=== PATIENT | male | born 1940 | race American Indian/Alaskan Native ===

== ENCOUNTER 2018-11-29 02:19 | Emergency (ER) | payer MEDICARE, MEDICAID ==
[~2018-11-29] VITALS: Ht 167.6 cm; Wt 94.1 kg
[~2018-11-29 02:19] MED LIST: ASPI-1071 PO; CHOL100010 PO; CLOP75TA35 PO; COR3.125T PO; FENO145T38 PO; FLUO20CA39 PO; LISI-600 PO; METF500T PO; MONT10TA21 PO; RANI150C3 PO; ROSU10TA2 PO
[2018-11-29] MEDS ORDERED: insulin regular, human 10 units/0.1 ml syringe SQ ONE (02:35)
[2018-11-29] MEDS ORDERED: LORazepam 0.5 MG tablet PO PRN (03:05)
[2018-11-29] MEDS ORDERED: TETanus/Pertussis (Acell)/Diphther VAC/PF (Tdap-Adult) 0.5ml syringe IM ONE (03:05)
[2018-11-29 03:59] VITALS: BP 139/75
== END 2018-11-29 04:00 | disposition home or self-care (01) ==
LOC: ER 02:20
DX: S51.811A Laceration without foreign body of right forearm, initial encounter (principal); E11.65 Type 2 diabetes mellitus with hyperglycemia; I25.10 Atherosclerotic heart disease of native coronary artery without angina pectoris; E78.00 Pure hypercholesterolemia, unspecified; I10 Essential (primary) hypertension; J45.909 Unspecified asthma, uncomplicated; Z98.61 Coronary angioplasty status; Z95.1 Presence of aortocoronary bypass graft; Z88.2 Allergy status to sulfonamides; Z79.82 Long term (current) use of aspirin; Z79.84 Long term (current) use of oral hypoglycemic drugs; Z79.2 Long term (current) use of antibiotics; Z79.899 Other long term (current) drug therapy; X58.XXXA Exposure to other specified factors, initial encounter; Y93.89 Activity, other specified; Y92.89 Other specified places as the place of occurrence of the external cause; Y99.8 Other external cause status
CPT/HCPCS: 12002; 82948; 90471; 90714; 96372; 99283; J1815

== ENCOUNTER 2019-01-23 21:40 | Emergency (ER) | payer MEDICARE, MEDICAID ==
[~2019-01-23] VITALS: Ht 167.6 cm; Wt 91.0 kg
--- NOTE | 2019-01-23 22:11 | NUR ---
Pt saw pcp 3 days ago and started on tizanadine and volteran cream and reprots it did "not even touch the pain". Pt has tylenol codeine and took this earlier today still with no reief of his left posterior neck pain. Currently 9 out of 10 pain and it is constant and throbbing.
--- NOTE | 2019-01-23 22:39 | NUR ---
DR PADRON AT BEDSIDE.
--- NOTE | 2019-01-23 23:39 | NUR ---
Pt reports pain continues to his left posterior neck. Dr. Leger notified and verbal received for [employer] .
[2019-01-23] MEDS ORDERED: HYDROcodone/acetaminophen 10/325mg tab PO ONE (23:50)
--- NOTE | 2019-01-23 23:52 | NUR ---
reports that pt took a tablet of her norco 10/325 aprox 3 hrs ago. She reports that pt has some relief from this. she reports Pt had hallucinations many yrs ago after taking vocidin. Pt not reporting any hallucinations since taking the [place] earlier. updated and medication deleted from allergy list.
--- NOTE | 2019-01-24 00:04 | NUR ---
DR. PADRON UPDATED THAT PT RECEIVED THE NORCO FROM HIS SPOUSE APROX 4 HR AGO, MD DISCONTINUING THE MED AND WILL ORDER A MUSCLE RELAXER INSTEAD.
--- NOTE | 2019-01-24 00:14 | NUR ---
DR PADRON REPORTS THAT SHE WILL REEVALUATE SHORTLY. PT UPDATED.
[2019-01-24] MEDS ORDERED: cyclobenzaprine 10mg tablet PO ONE (00:30)
--- NOTE | 2019-01-24 00:30 | NUR ---
dr cherry talking with pt. ( has gone out ot the car). Order to place soft neck collar and Pt reprots immediate comfort just having the collar on. md to given dose of flexeril prior to dc.
[2019-01-24 00:32] VITALS: BP 187/97
[2019-01-24] MEDS ORDERED: HYDR-3965 PO (00:35)
[2019-01-24] MEDS ORDERED: CYCL-1 PO (00:35)
== END 2019-01-24 00:50 | disposition home or self-care (01) ==
LOC: ER 21:41
DX: M43.6 Torticollis (principal); I25.10 Atherosclerotic heart disease of native coronary artery without angina pectoris; E78.00 Pure hypercholesterolemia, unspecified; I10 Essential (primary) hypertension; J45.909 Unspecified asthma, uncomplicated; E11.9 Type 2 diabetes mellitus without complications; Z98.61 Coronary angioplasty status; Z95.1 Presence of aortocoronary bypass graft; Z88.2 Allergy status to sulfonamides; Z88.6 Allergy status to analgesic agent; Z79.82 Long term (current) use of aspirin; Z79.84 Long term (current) use of oral hypoglycemic drugs; Z79.899 Other long term (current) drug therapy
CPT/HCPCS: 72050; 99283

== ENCOUNTER 2019-12-02 04:54 | Emergency (ER) | payer MEDICARE, MEDICAID ==
[~2019-12-02] VITALS: Ht 167.6 cm; Wt 90.0 kg
[~2019-12-02 04:54] MED LIST changes: +CYCL-1 PO
[2019-12-02 04:58] VITALS: BP 190/68
[2019-12-02] MEDS ORDERED: CIPR-230 PO (05:10)
== END 2019-12-02 05:33 | disposition home or self-care (01) ==
LOC: ER 04:54
DX: H60.91 Unspecified otitis externa, right ear (principal); I25.10 Atherosclerotic heart disease of native coronary artery without angina pectoris; E78.00 Pure hypercholesterolemia, unspecified; I10 Essential (primary) hypertension; J45.909 Unspecified asthma, uncomplicated; E11.9 Type 2 diabetes mellitus without complications; Z98.61 Coronary angioplasty status; Z95.1 Presence of aortocoronary bypass graft; Z88.2 Allergy status to sulfonamides; Z88.5 Allergy status to narcotic agent; Z79.82 Long term (current) use of aspirin; Z79.899 Other long term (current) drug therapy
CPT/HCPCS: 99283

== ENCOUNTER 2020-12-06 22:05 | Emergency (ER) | payer MEDICARE, MEDICAID ==
[~2020-12-06] VITALS: Ht 167.6 cm; Wt 92.7 kg
[~2020-12-06 22:05] MED LIST changes: +CLOP75TA34 PO; -CLOP75TA35 PO; -LISI-600 PO; +LISI20TA28 PO
[2020-12-06 22:08] VITALS: BP 112/67
== END 2020-12-07 05:56 | disposition left against medical advice (07) ==
LOC: ER 22:05
DX: I10 Essential (primary) hypertension (principal); Z53.21 Procedure and treatment not carried out due to patient leaving prior to being seen by health care provider

== ENCOUNTER 2020-12-26 05:51 | Day surgery (SDC) | payer MEDICARE, MEDICAID ==
[2020-12-25 16:30] LABS: ALBUMIN 3.7 G/DL (3.4-5.0); ANION GAP 11 (8-16); BLOOD UREA NITROGEN 41 MG/DL (7-18); BUN/CREATININE RATIO 19.8 (5.4-32.0); CALCIUM 8.7 MG/DL (8.5-10.1); CHLORIDE 107 MMOL/L (99-107); CREATININE 2.07 MG/DL (0.60-1.10); GLUCOSE 132 MG/DL (70-104); POTASSIUM 4.4 MMOL/L (3.5-5.1); SODIUM 140 MMOL/L (135-145); TOTAL CARBON DIOXIDE 21.8 MMOL/L (24-32); eGFR 31 ML/MIN
[2020-12-25 16:31] LABS: BASOPHILS # (AUTO) 0.1 X10'3 (0-0.2); EOSINOPHILS # (AUTO) 0.1 X10'3 (0-0.9); EOSINOPHILS % (AUTO) 2.3 % (0-6); HEMATOCRIT 42.1 % (42.0-52.0); HEMOGLOBIN 14.4 g/dl (14.0-17.9); LYMPHOCYTES # (AUTO) 1.5 X10'3 (1.1-4.8); MEAN CORPUSCULAR HEMOGLOBIN 30.9 PG (27.0-31.0); MEAN CORPUSCULAR HGB CONC 34.1 g/dL (33.0-36.5); MEAN CORPUSCULAR VOLUME 90.7 FL (78-98); MEAN PLATELET VOLUME 9.4 FL (7.4-10.4); MONOCYTES # (AUTO) 0.4 X10'3 (0-0.9); MONOCYTES % (AUTO) 8.2 % (2-12); NEUTROPHILS % (AUTO) 59.5 % (42-75); PLATELET COUNT 220 X10'3 (140-440); RED BLOOD COUNT 4.64 X10'6 (4.70-6.10); RED CELL DISTRIBUTION WIDTH 13.5 % (11.5-14.5)
[2020-12-25 16:33] LABS: PARTIAL THROMBOPLASTIN TIME 28 SECONDS (22-32)
[~2020-12-26] VITALS: Ht 165.1 cm; Wt 92.6 kg
[2020-12-26] VITALS (18 sets, daily range): BP systolic 123–167; BP diastolic 46–78
[2020-12-26] MEDS ORDERED: diphenhydrAMINE 25mg capsule PO PRN (06:25)
[2020-12-26] MEDS ORDERED: LORazepam 0.5 MG tablet PO PRN (06:25)
[2020-12-26] MEDS ORDERED: NITR1PAT68 TOP (06:48)
[2020-12-26] MEDS ORDERED: CARV6.253 PO (06:48)
[2020-12-26] MEDS ORDERED: CETI10TA14 PO (06:48)
[2020-12-26] MEDS ORDERED: ASPI-1397 PO (06:48)
[2020-12-26] MEDS ORDERED: EMPA10TA PO (06:50)
[2020-12-26] MEDS ORDERED: SPIR50TA PO (06:53)
[2020-12-26] MEDS ORDERED: FISH OIL PO (06:53)
[2020-12-26] MEDS ORDERED: AMLO2.5T2 PO (06:53)
[2020-12-26] MEDS: normal saline 1,000 ML IV SCH ×2 (06:54→16:25)
[2020-12-26] MEDS ORDERED: ICOS1CAP PO (06:55)
[2020-12-26] MEDS ORDERED: fentaNYL/PF 50MCG/1 ML 2ML syringe ONE (07:40)
[2020-12-26] MEDS ORDERED: LIDOcaine 1% (10mg/ml)w/preservative injection 20ml MDV ONE (07:40)
[2020-12-26] MEDS ORDERED: midazolam 1 mg/ML 2ml injection ONE (07:40)
[2020-12-26] MEDS ORDERED: iohexol 350MG/ML 100ml bottle IV ONE ×2 (07:40→08:32)
[2020-12-26] MEDS ORDERED: iohexol 350 MG/ML 50ML vial IV ONE (07:40)
[2020-12-26] MEDS ORDERED: nitroGLYCERIN-Tridil 50MG/D5W 250 ML IV ONE (07:41)
[2020-12-26] MEDS ORDERED: heparin 1,000unit/ml 10ml vial 10 ML ONE (08:24)
[2020-12-26] MEDS ORDERED: heparin 25,000 UNIT/250ml bag 250 ML IV ONE (08:48)
[2020-12-26] MEDS ORDERED: clopidogrel 300mg tablet ONE (09:09)
[2020-12-26] MEDS: sodium bicarbonate (8.4%) inj. 150 MEQ in dextrose 5%-water 1,000 ML IV SCH ×2 (09:50→16:59)
[2020-12-26] MEDS ORDERED: CLOPIDOGREL BISULFATE 300MG TAB PO ONE (10:30)
[2020-12-26] MEDS ORDERED: aspirin 81mg tab.chew PO ONE (10:35)
[2020-12-26] MEDS ORDERED: acetaminophen 325mg tablet PO PRN ×2 (10:35)
[2020-12-26] MEDS ORDERED: proCHLORperazine 10 MG/2 ml inj IV PRN (10:35)
[2020-12-26] MEDS ORDERED: sodium bicarbonate (8.4%) inj. 150 MEQ in dextrose 5%-water 1,000 ML IV SCH (10:35)
[2020-12-26] MEDS ORDERED: cyclobenzaprine 10mg tablet PO PRN (10:35)
[2020-12-26] MEDS ORDERED: HYDROcodone/acetaminophen 10/325mg tab PO PRN ×2 (10:35)
[2020-12-26] MEDS ORDERED: OXAZEpam 15mg capsule PO PRN (10:35)
[2020-12-26] MEDS: ACETYLCYSTEINE 200 MG/1 ML 4 ML ORAL SOLUTION PO SCH ×2 (11:08→18:20)
[2020-12-26] MEDS ORDERED: atropine 0.1mg/ml 10ml syringe IV ONE (12:10)
--- NOTE | 2020-12-26 12:15 | NUR ---
Called Dr. Alvarez in [facility] regarding patient HR going into the 30's. Received orders for atropine
[2020-12-26] MEDS ORDERED: atropine 1 MG/1 ML vial IV PRN (15:45)
--- NOTE | 2020-12-26 15:50 | NUR ---
Dr. Alvarez called again regarding patient's HR dropping in the 30's. New orders received.
[2020-12-26] MEDS ORDERED: atropine 0.1mg/ml 10ml syringe IV PRN (15:55)
--- NOTE | 2020-12-26 18:56 | NUR ---
Report given to Millie CORONADO
[2020-12-26] MEDS ORDERED: docusate sod 100mg capsule PO SCH (20:00)
[2020-12-26] MEDS ORDERED: lisinopril 10 MG tablet PO SCH (20:00)
[2020-12-26] MEDS ORDERED: carVEDilol 3.125mg tablet PO SCH (20:00)
[2020-12-26] MEDS ORDERED: ICOSAPENT ETHYL PO SCH (20:00)
[2020-12-27] MEDS ORDERED: aspirin 81mg, enteric-coated 1 TAB TABLET.DR PO SCH (08:00)
[2020-12-27] MEDS ORDERED: aspirin 81mg tab.chew PO SCH (08:00)
[2020-12-27] MEDS ORDERED: cholecalciferol (vitamin D3) 1,000 unit (25mcg) tablet PO SCH (08:00)
[2020-12-27] MEDS ORDERED: DAPAGLIFLOZIN 10MG TABLET PO SCH (08:00)
[2020-12-27] MEDS ORDERED: spironolactone 50 MG tablet PO SCH (08:00)
[2020-12-27] MEDS ORDERED: amLODIPine 2.5mg tablet PO SCH (08:00)
[2020-12-27] MEDS ORDERED: cetirizine 10mg tablet PO SCH (08:00)
[2020-12-27] MEDS ORDERED: nitroGLYCERIN 0.4mg/hour patch TD SCH (08:00)
[2020-12-27] MEDS ORDERED: clopidogrel 75mg tablet PO SCH ×2 (08:00)
== END 2020-12-26 19:00 | disposition home or self-care (01) ==
LOC: SSTAY O 05:51
PROVIDERS: ATTEND Internal Medicine Cardiovascular Disease
DX: R94.39 Abnormal result of other cardiovascular function study (principal); R53.83 Other fatigue; R06.02 Shortness of breath; I25.810 Atherosclerosis of coronary artery bypass graft(s) without angina pectoris; I12.0 Hypertensive chronic kidney disease with stage 5 chronic kidney disease or end stage renal disease; N18.6 End stage renal disease; E78.49 Other hyperlipidemia; E66.3 Overweight; Z68.32 Body mass index [BMI] 32.0-32.9, adult; F41.9 Anxiety disorder, unspecified; F32.9 Major depressive disorder, single episode, unspecified; J45.909 Unspecified asthma, uncomplicated; Z79.899 Other long term (current) drug therapy; Z98.890 Other specified postprocedural states; Z87.891 Personal history of nicotine dependence; Z88.5 Allergy status to narcotic agent; Z88.2 Allergy status to sulfonamides
CPT/HCPCS: 36415; 76937; 80048; 82948; 85025; 85347; 85610; 85730; 93005; 93459; 99152; 99153; C1725; C1751; C1769; C1874; C1894; C9600; J0461; J1644; J2001; J2250; J3010; J7030; J7040; Q0163; Q9967; A4620; A6258; J3490

== ENCOUNTER 2021-01-16 05:52 | Day surgery (SDC) | payer MEDICARE, MEDICAID ==
[2021-01-15 15:57] LABS: BASOPHILS % (AUTO) 0.6 % (0-1); EOSINOPHILS # (AUTO) 0.1 X10'3 (0-0.9); EOSINOPHILS % (AUTO) 1.7 % (0-6); HEMATOCRIT 42.6 % (42.0-52.0); HEMOGLOBIN 14.1 g/dl (14.0-17.9); LYMPHOCYTES # (AUTO) 1.5 X10'3 (1.1-4.8); LYMPHOCYTES % (AUTO) 21.8 % (21-51); MEAN CORPUSCULAR HEMOGLOBIN 29.6 PG (27.0-31.0); MEAN CORPUSCULAR VOLUME 89.7 FL (78-98); MEAN PLATELET VOLUME 8.4 FL (7.4-10.4); MONOCYTES # (AUTO) 0.6 X10'3 (0-0.9); MONOCYTES % (AUTO) 8.5 % (2-12); NEUTROPHILS # (AUTO) 4.5 X10'3 (1.8-7.7); NEUTROPHILS % (AUTO) 67.4 % (42-75); PLATELET COUNT 286 X10'3 (140-440); RED BLOOD COUNT 4.75 X10'6 (4.70-6.10); RED CELL DISTRIBUTION WIDTH 13.6 % (11.5-14.5); WHITE BLOOD COUNT 6.7 X10'3 (4.5-11.0)
[2021-01-15 16:04] LABS: ALBUMIN 3.3 G/DL (3.4-5.0); ANION GAP 14 (8-16); BLOOD UREA NITROGEN 24 MG/DL (7-18); BUN/CREATININE RATIO 13.8 (5.4-32.0); CALCIUM 8.8 MG/DL (8.5-10.1); CHLORIDE 106 MMOL/L (99-107); CREATININE 1.74 MG/DL (0.60-1.10); GLUCOSE 178 MG/DL (70-104); POTASSIUM 4.3 MMOL/L (3.5-5.1); SODIUM 142 MMOL/L (135-145); TOTAL CARBON DIOXIDE 22.2 MMOL/L (24-32); eGFR 38 ML/MIN
[2021-01-15 16:06] LABS: PARTIAL THROMBOPLASTIN TIME 29 SECONDS (22-32)
[~2021-01-16] VITALS: Ht 167.6 cm; Wt 93.0 kg
[2021-01-16] VITALS (11 sets, daily range): BP systolic 131–155; BP diastolic 61–85
[~2021-01-16 05:52] MED LIST changes: +AMLO2.5T2 PO; -ASPI-1071 PO; +ASPI-1397 PO; +CARV6.253 PO; +CETI10TA14 PO; -COR3.125T PO; -CYCL-1 PO; +EMPA10TA PO; -FENO145T38 PO; -FLUO20CA39 PO; +ICOS1CAP PO; -METF500T PO; -MONT10TA21 PO; +NITR1PAT68 TOP; -RANI150C3 PO; -ROSU10TA2 PO; +SPIR50TA PO
[2021-01-16] MEDS ORDERED: normal saline 1,000 ML IV SCH (06:15)
[2021-01-16] MEDS ORDERED: sodium bicarbonate (8.4%) inj. 150 ML in dextrose 5%-water 1,000 ML IV ONE (06:15)
[2021-01-16] MEDS ORDERED: MONT10TA32 PO (06:26)
[2021-01-16] MEDS ORDERED: ROSU20TA31 PO (06:26)
[2021-01-16] MEDS ORDERED: EMPA10TA PO (06:29)
[2021-01-16] MEDS ORDERED: PANT40TA54 PO (06:29)
[2021-01-16] MEDS: acetylcysteine 200 MG/ml 4ml vial PO SCH ×3 (07:12→15:46)
[2021-01-16] MEDS ORDERED: nitroGLYCERIN-Tridil 50MG/D5W 250 ML IV ONE (07:18)
[2021-01-16] MEDS ORDERED: iohexol 350 MG/ML 50ML vial IV ONE (07:19)
[2021-01-16] MEDS ORDERED: midazolam 1 mg/ML 2ml injection ONE (07:19)
[2021-01-16] MEDS ORDERED: iohexol 350 MG/1 ML 200ml bottle ONE (07:19)
[2021-01-16] MEDS ORDERED: fentaNYL/PF 50MCG/1 ML 2ML syringe ONE (07:19)
[2021-01-16] MEDS ORDERED: heparin 1,000unit/ml 10ml vial 10 ML ONE (07:19)
[2021-01-16] MEDS ORDERED: LIDOcaine 1% (10mg/ml)w/preservative injection 20ml MDV ONE (07:19)
[2021-01-16] MEDS ORDERED: heparin 25,000 UNIT/250ml bag 250 ML IV ONE (07:28)
[2021-01-16] MEDS ORDERED: LIDOcaine/PRILOcaine 5gm cream TP ONE (07:35)
[2021-01-16] MEDS ORDERED: verapamil 2.5 mg/ml inj IV ONE (07:49)
[2021-01-16] MEDS ORDERED: clopidogrel 300mg tablet ONE (09:19)
--- NOTE | 2021-01-16 10:00 | NUR ---
[employer] IV running at 93ml/hr after arrival on unit.
[2021-01-16] MEDS ORDERED: HYDROcodone/acetaminophen 10/325mg tab PO PRN (10:05)
[2021-01-16] MEDS ORDERED: HYDROcodone/acetaminophen 5mg/325mg tablet PO PRN (10:05)
--- NOTE | 2021-01-16 10:26 | NUR ---
Pt sitting up in bed accompanied by at bedside. Pt eating sandwich and watching TV. Denies pain, sob. Vascular band in place, no s/s of bleeding or infection. IV fluids running as ordered. Will continue to monitor.
--- NOTE | 2021-01-16 10:30 | NUR ---
Heparin gtt DC per order.
[2021-01-17] MEDS ORDERED: clopidogrel 75mg tablet PO SCH (08:00)
== END 2021-01-16 16:00 | disposition home or self-care (01) ==
LOC: SSTAY O 05:52
PROVIDERS: ATTEND Internal Medicine Cardiovascular Disease
DX: I25.810 Atherosclerosis of coronary artery bypass graft(s) without angina pectoris (principal); E11.22 Type 2 diabetes mellitus with diabetic chronic kidney disease; I12.9 Hypertensive chronic kidney disease with stage 1 through stage 4 chronic kidney disease, or unspecified chronic kidney disease; N18.9 Chronic kidney disease, unspecified; K21.9 Gastro-esophageal reflux disease without esophagitis; F32.9 Major depressive disorder, single episode, unspecified; F41.9 Anxiety disorder, unspecified; J45.909 Unspecified asthma, uncomplicated; I65.22 Occlusion and stenosis of left carotid artery; E78.49 Other hyperlipidemia; E66.9 Obesity, unspecified; Z68.32 Body mass index [BMI] 32.0-32.9, adult; Z98.890 Other specified postprocedural states; Z79.01 Long term (current) use of anticoagulants; Z79.899 Other long term (current) drug therapy; Z79.82 Long term (current) use of aspirin; Z87.891 Personal history of nicotine dependence; Z88.5 Allergy status to narcotic agent; Z88.2 Allergy status to sulfonamides
CPT/HCPCS: 36415; 76937; 80048; 82948; 85025; 85347; 85610; 85730; 93005; 99152; 99153; C1725; C1751; C1769; C1874; C1894; C9604; J1644; J2001; J2250; J3010; J7030; Q9967; A4620; A5120; A6258; J3490

== ENCOUNTER 2021-02-24 02:38 | Emergency (ER) | payer MEDICARE, MEDICAID ==
[~2021-02-24] VITALS: Ht 167.6 cm; Wt 90.4 kg
[~2021-02-24 02:38] MED LIST changes: -ICOS1CAP PO; +MONT10TA32 PO; +PANT40TA54 PO; +ROSU20TA31 PO
[2021-02-24 03:01] VITALS: BP 138/59
[2021-02-24 03:40] LABS: BASOPHILS # (AUTO) 0.1 X10'3 (0-0.2); BASOPHILS % (AUTO) 1.2 % (0-1); EOSINOPHILS # (AUTO) 0.1 X10'3 (0-0.9); EOSINOPHILS % (AUTO) 1.6 % (0-6); HEMATOCRIT 45.8 % (42.0-52.0); HEMOGLOBIN 15.2 g/dl (14.0-17.9); LYMPHOCYTES % (AUTO) 33.9 % (21-51); MEAN CORPUSCULAR HEMOGLOBIN 30.2 PG (27.0-31.0); MEAN CORPUSCULAR HGB CONC 33.3 g/dL (33.0-36.5); MEAN CORPUSCULAR VOLUME 90.8 FL (78-98); MONOCYTES # (AUTO) 0.6 X10'3 (0-0.9); MONOCYTES % (AUTO) 9.9 % (2-12); NEUTROPHILS # (AUTO) 3.2 X10'3 (1.8-7.7); NEUTROPHILS % (AUTO) 53.4 % (42-75); PLATELET COUNT 213 X10'3 (140-440); RED BLOOD COUNT 5.04 X10'6 (4.70-6.10); RED CELL DISTRIBUTION WIDTH 14.8 % (11.5-14.5)
== END 2021-02-24 04:50 | disposition home or self-care (01) ==
LOC: ER 02:39
DX: R03.0 Elevated blood-pressure reading, without diagnosis of hypertension (principal); R07.89 Other chest pain; I10 Essential (primary) hypertension; E11.9 Type 2 diabetes mellitus without complications; I25.10 Atherosclerotic heart disease of native coronary artery without angina pectoris; E78.00 Pure hypercholesterolemia, unspecified; J45.909 Unspecified asthma, uncomplicated; Z79.82 Long term (current) use of aspirin; Z95.5 Presence of coronary angioplasty implant and graft; Z79.899 Other long term (current) drug therapy
CPT/HCPCS: 36415; 71045; 84484; 85025; 93005; 99285

== ENCOUNTER 2021-08-12 00:24 | Emergency (ER) | payer MEDICARE, MEDICAID ==
[~2021-08-12 00:24] MED LIST changes: +MONT-40 PO; -MONT10TA32 PO
--- NOTE | 2021-08-12 00:52 | NUR ---
PT SAW BP OF 133/64 IN TRIAGE AND STATES HE NO LONGER WANTS TO BE SEEN. PT ASKED TO NTO COMPLETE HIS TRIAGE AND DEPARTED IN STABLE CONDITION FROM LOBBY
[2021-08-12 00:53] VITALS: BP 133/64
== END 2021-08-12 00:55 | disposition left against medical advice (07) ==
LOC: ER 00:25
DX: R03.0 Elevated blood-pressure reading, without diagnosis of hypertension (principal); Z53.21 Procedure and treatment not carried out due to patient leaving prior to being seen by health care provider

== ENCOUNTER 2021-12-14 23:57 | Emergency (ER) | payer BC, MEDICAID ==
[~2021-12-14] VITALS: Ht 167.6 cm; Wt 85.5 kg
[2021-12-15 01:33] LABS: BASOPHILS % (AUTO) 0.8 % (0-1); EOSINOPHILS # (AUTO) 0.2 X10'3 (0-0.9); EOSINOPHILS % (AUTO) 2.9 % (0-6); HEMATOCRIT 44.9 % (42.0-52.0); HEMOGLOBIN 15.1 g/dl (14.0-17.9); LYMPHOCYTES # (AUTO) 1.7 X10'3 (1.1-4.8); LYMPHOCYTES % (AUTO) 28.1 % (21-51); MEAN CORPUSCULAR HEMOGLOBIN 30.4 PG (27.0-31.0); MEAN CORPUSCULAR HGB CONC 33.7 g/dL (33.0-36.5); MEAN CORPUSCULAR VOLUME 90.4 FL (78-98); MEAN PLATELET VOLUME 8.8 FL (7.4-10.4); MONOCYTES # (AUTO) 0.5 X10'3 (0-0.9); MONOCYTES % (AUTO) 8.1 % (2-12); NEUTROPHILS # (AUTO) 3.6 X10'3 (1.8-7.7); NEUTROPHILS % (AUTO) 60.1 % (42-75); PLATELET COUNT 169 X10'3 (140-440); RED BLOOD COUNT 4.97 X10'6 (4.70-6.10); RED CELL DISTRIBUTION WIDTH 14.5 % (11.5-14.5)
[2021-12-15 01:58] LABS: ALANINE AMINOTRANSFERASE 26 U/L (12-78); ALBUMIN 3.6 G/DL (3.4-5.0); ALKALINE PHOSPHATASE 80 IU/L (46-116); ANION GAP 10 (8-16); ASPARTATE AMINO TRANSFERASE 22 U/L (10-37); BILIRUBIN,TOTAL 0.7 MG/DL (0.1-1.0); BLOOD UREA NITROGEN 34 MG/DL (7-18); BUN/CREATININE RATIO 17.8 (5.4-32.0); CALCIUM 8.5 MG/DL (8.5-10.1); CHLORIDE 103 MMOL/L (99-107); CREATININE 1.91 MG/DL (0.60-1.10); GLUCOSE 130 MG/DL (70-104); POTASSIUM 4.4 MMOL/L (3.5-5.1); SODIUM 137 MMOL/L (135-145); TOTAL CARBON DIOXIDE 24.5 MMOL/L (24-32); TOTAL PROTEIN 7.3 G/DL (6.4-8.2); eGFR 34 ML/MIN
[2021-12-15 02:31] VITALS: BP_DIAS 73
[2021-12-15] MEDS ORDERED: hyDRALAzine 10mg tablet PO SCH (02:40)
[2021-12-15 03:00] VITALS: BP_SYST 180
== END 2021-12-15 03:11 | disposition home or self-care (01) ==
LOC: ER 23:57
DX: R06.00 Dyspnea, unspecified (principal); I10 Essential (primary) hypertension; R06.02 Shortness of breath; I48.91 Unspecified atrial fibrillation; I25.10 Atherosclerotic heart disease of native coronary artery without angina pectoris; E78.00 Pure hypercholesterolemia, unspecified; J45.909 Unspecified asthma, uncomplicated; E11.9 Type 2 diabetes mellitus without complications; Z98.890 Other specified postprocedural states; Z79.82 Long term (current) use of aspirin; Z79.899 Other long term (current) drug therapy
CPT/HCPCS: 36415; 71045; 80053; 82948; 83880; 84484; 85025; 93005; 99285

== ENCOUNTER 2021-12-17 04:29 | Emergency (ER) | payer BC, MEDICAID ==
[~2021-12-17] VITALS: Ht 167.6 cm; Wt 78.0 kg
[2021-12-17] MEDS ORDERED: ICOS1CAP PO (04:47)
[2021-12-17] MEDS ORDERED: DULA0.75 SQ (04:47)
[2021-12-17] MEDS ORDERED: B12 (04:47)
[2021-12-17 06:10] LABS: BASOPHILS # (AUTO) 0.1 X10'3 (0-0.2); BASOPHILS % (AUTO) 0.9 % (0-1); EOSINOPHILS # (AUTO) 0.1 X10'3 (0-0.9); EOSINOPHILS % (AUTO) 2.5 % (0-6); HEMOGLOBIN 16.2 g/dl (14.0-17.9); LYMPHOCYTES # (AUTO) 1.8 X10'3 (1.1-4.8); LYMPHOCYTES % (AUTO) 31.5 % (21-51); MEAN CORPUSCULAR HEMOGLOBIN 30.5 PG (27.0-31.0); MEAN CORPUSCULAR HGB CONC 33.7 g/dL (33.0-36.5); MEAN CORPUSCULAR VOLUME 90.3 FL (78-98); MEAN PLATELET VOLUME 8.7 FL (7.4-10.4); MONOCYTES # (AUTO) 0.6 X10'3 (0-0.9); MONOCYTES % (AUTO) 10.2 % (2-12); NEUTROPHILS # (AUTO) 3.2 X10'3 (1.8-7.7); NEUTROPHILS % (AUTO) 54.9 % (42-75); PLATELET COUNT 192 X10'3 (140-440); RED BLOOD COUNT 5.31 X10'6 (4.70-6.10); RED CELL DISTRIBUTION WIDTH 14.7 % (11.5-14.5); WHITE BLOOD COUNT 5.8 X10'3 (4.5-11.0)
[2021-12-17 06:18] LABS: ALANINE AMINOTRANSFERASE 27 U/L (12-78); ALBUMIN/GLOBULIN RATIO 1.1 (1.1-1.5); ALKALINE PHOSPHATASE 66 IU/L (46-116); ANION GAP 12 (8-16); ASPARTATE AMINO TRANSFERASE 29 U/L (10-37); BILIRUBIN,TOTAL 0.9 MG/DL (0.1-1.0); BLOOD UREA NITROGEN 46 MG/DL (7-18); BUN/CREATININE RATIO 18.2 (5.4-32.0); CALCIUM 9.2 MG/DL (8.5-10.1); CHLORIDE 103 MMOL/L (99-107); CREATININE 2.53 MG/DL (0.60-1.10); GLUCOSE 124 MG/DL (70-104); POTASSIUM 4.1 MMOL/L (3.5-5.1); SODIUM 141 MMOL/L (135-145); TOTAL CARBON DIOXIDE 26.4 MMOL/L (24-32); TOTAL PROTEIN 7.8 G/DL (6.4-8.2); eGFR 25 ML/MIN
[2021-12-17 06:59] VITALS: BP 141/71
== END 2021-12-17 07:00 | disposition home or self-care (01) ==
LOC: ER 04:30
DX: I10 Essential (primary) hypertension (principal); F41.9 Anxiety disorder, unspecified; I48.91 Unspecified atrial fibrillation; I25.10 Atherosclerotic heart disease of native coronary artery without angina pectoris; E78.00 Pure hypercholesterolemia, unspecified; J45.909 Unspecified asthma, uncomplicated; E11.9 Type 2 diabetes mellitus without complications; Z98.890 Other specified postprocedural states; Z79.82 Long term (current) use of aspirin; Z79.899 Other long term (current) drug therapy
CPT/HCPCS: 36415; 80053; 83880; 84484; 85025; 93005; 99284

== ENCOUNTER 2022-05-30 22:44 | Emergency (ER) | payer BC, MEDICAID ==
[~2022-05-30] VITALS: Ht 167.6 cm; Wt 89.5 kg
[~2022-05-30 22:44] MED LIST changes: -AMLO2.5T2 PO; +B12; +DULA0.75 SQ; +ICOS1CAP PO; -LISI20TA28 PO
[2022-05-31 00:12] LABS: BASOPHILS % (AUTO) 0.7 % (0-1); EOSINOPHILS # (AUTO) 0.1 X10'3 (0-0.9); HEMATOCRIT 48.9 % (42.0-52.0); HEMOGLOBIN 16.8 g/dl (14.0-17.9); LYMPHOCYTES # (AUTO) 1.8 X10'3 (1.1-4.8); LYMPHOCYTES % (AUTO) 25.2 % (21-51); MEAN CORPUSCULAR HEMOGLOBIN 31.2 PG (27.0-31.0); MEAN CORPUSCULAR HGB CONC 34.4 g/dL (33.0-36.5); MEAN CORPUSCULAR VOLUME 90.7 FL (78-98); MEAN PLATELET VOLUME 8.4 FL (7.4-10.4); MONOCYTES # (AUTO) 0.5 X10'3 (0-0.9); MONOCYTES % (AUTO) 7.2 % (2-12); NEUTROPHILS # (AUTO) 4.6 X10'3 (1.8-7.7); NEUTROPHILS % (AUTO) 64.9 % (42-75); PLATELET COUNT 205 X10'3 (140-440); RED BLOOD COUNT 5.39 X10'6 (4.70-6.10); RED CELL DISTRIBUTION WIDTH 14.1 % (11.5-14.5)
[2022-05-31 00:31] LABS: ALANINE AMINOTRANSFERASE 21 U/L (12-78); ALBUMIN 3.9 G/DL (3.4-5.0); ALBUMIN/GLOBULIN RATIO 1.1 (1.1-1.5); ALKALINE PHOSPHATASE 66 IU/L (46-116); ANION GAP 10 (8-16); ASPARTATE AMINO TRANSFERASE 27 U/L (10-37); BILIRUBIN,TOTAL 0.8 MG/DL (0.1-1.0); BLOOD UREA NITROGEN 34 MG/DL (7-18); BUN/CREATININE RATIO 20.4 (5.4-32.0); CALCIUM 9.3 MG/DL (8.5-10.1); CHLORIDE 105 MMOL/L (99-107); CREATININE 1.67 MG/DL (0.60-1.10); GLUCOSE 130 MG/DL (70-104); POTASSIUM 4.6 MMOL/L (3.5-5.1); SODIUM 137 MMOL/L (135-145); TOTAL CARBON DIOXIDE 22.5 MMOL/L (24-32); TOTAL PROTEIN 7.5 G/DL (6.4-8.2); eGFR 40 ML/MIN
[2022-05-31 06:22] VITALS: BP 183/82
== END 2022-05-31 06:59 | disposition home or self-care (01) ==
LOC: ER 22:45
DX: I10 Essential (primary) hypertension (principal); E78.00 Pure hypercholesterolemia, unspecified; I12.0 Hypertensive chronic kidney disease with stage 5 chronic kidney disease or end stage renal disease; N18.9 Chronic kidney disease, unspecified; E11.22 Type 2 diabetes mellitus with diabetic chronic kidney disease
CPT/HCPCS: 36415; 71045; 80053; 83880; 84484; 85025; 93005; 99285

== ENCOUNTER 2023-08-24 05:55 | Emergency (ER) | payer BC, MEDICAID ==
[~2023-08-24] VITALS: Ht 167.6 cm; Wt 94.4 kg
[~2023-08-24 05:55] MED LIST changes: -ROSU20TA31 PO; +ROSU20TA73 PO
[2023-08-24 07:58] VITALS: BP 168/70; PULSE 65; RESP 16; TEMP 98; O2SAT 98
== END 2023-08-24 08:32 | disposition home or self-care (01) ==
LOC: ER 05:57
DX: S50.01XA Contusion of right elbow, initial encounter (principal); I48.91 Unspecified atrial fibrillation; I25.10 Atherosclerotic heart disease of native coronary artery without angina pectoris; E78.00 Pure hypercholesterolemia, unspecified; J45.909 Unspecified asthma, uncomplicated; E11.22 Type 2 diabetes mellitus with diabetic chronic kidney disease; I12.9 Hypertensive chronic kidney disease with stage 1 through stage 4 chronic kidney disease, or unspecified chronic kidney disease; N18.9 Chronic kidney disease, unspecified; Z95.1 Presence of aortocoronary bypass graft; Z98.890 Other specified postprocedural states; X58.XXXA Exposure to other specified factors, initial encounter; Y93.89 Activity, other specified; Y92.810 Car as the place of occurrence of the external cause; Y99.8 Other external cause status
CPT/HCPCS: 29105; 73080; 99283; A6446; A6449

== ENCOUNTER 2023-09-04 14:54 | Emergency (ER) | payer BC, MEDICAID ==
[~2023-09-04] VITALS: Ht 167.6 cm; Wt 86.8 kg
[~2023-09-04 14:54] MED LIST changes: +CARV3.122 PO; -CARV6.253 PO; -CETI10TA14 PO; -DULA0.75 SQ
[2023-09-04 15:06] VITALS: TEMP 98
[2023-09-04 15:29] LABS: BASOPHILS % (AUTO) 0.4 % (0-1); EOSINOPHILS # (AUTO) 0.2 X10'3 (0-0.9); EOSINOPHILS % (AUTO) 2.7 % (0-6); HEMATOCRIT 46.4 % (42.0-52.0); HEMOGLOBIN 15.5 g/dl (14.0-17.9); LYMPHOCYTES # (AUTO) 1.4 X10'3 (1.1-4.8); LYMPHOCYTES % (AUTO) 21.5 % (21-51); MEAN CORPUSCULAR HEMOGLOBIN 30.6 PG (27.0-31.0); MEAN CORPUSCULAR HGB CONC 33.3 g/dL (33.0-36.5); MEAN CORPUSCULAR VOLUME 91.7 FL (78-98); MEAN PLATELET VOLUME 8.8 FL (7.4-10.4); MONOCYTES # (AUTO) 0.6 X10'3 (0-0.9); MONOCYTES % (AUTO) 8.8 % (2-12); NEUTROPHILS # (AUTO) 4.4 X10'3 (1.8-7.7); NEUTROPHILS % (AUTO) 66.6 % (42-75); PLATELET COUNT 223 X10'3 (140-440); RED BLOOD COUNT 5.06 X10'6 (4.70-6.10); RED CELL DISTRIBUTION WIDTH 13.9 % (11.5-14.5); WHITE BLOOD COUNT 6.6 X10'3 (4.5-11.0)
[2023-09-04 15:52] LABS: ALBUMIN 3.5 G/DL (3.4-5.0); ANION GAP 11 (8-16); BLOOD UREA NITROGEN 40 MG/DL (7-18); BUN/CREATININE RATIO 18.9 (10.0-20.0); CALCIUM 9.1 MG/DL (8.5-10.1); CHLORIDE 103 MMOL/L (99-107); CREATININE 2.12 MG/DL (0.60-1.10); GLUCOSE 153 MG/DL (70-104); POTASSIUM 4.4 MMOL/L (3.5-5.1); PRO BRAIN NATRIURETIC PEPTIDE 623 PG/ML (0-450); SODIUM 137 MMOL/L (135-145); TOTAL CARBON DIOXIDE 22.9 MMOL/L (24-32); eCRCL 23 ML/MIN; eGFR 30 ML/MIN
[2023-09-04 18:55] VITALS: BP 172/65; PULSE 60; RESP 18; O2SAT 98
== END 2023-09-04 18:57 | disposition home or self-care (01) ==
LOC: ER 14:55
DX: E11.22 Type 2 diabetes mellitus with diabetic chronic kidney disease (principal); I12.9 Hypertensive chronic kidney disease with stage 1 through stage 4 chronic kidney disease, or unspecified chronic kidney disease; N18.9 Chronic kidney disease, unspecified; I48.91 Unspecified atrial fibrillation; I25.10 Atherosclerotic heart disease of native coronary artery without angina pectoris; E78.00 Pure hypercholesterolemia, unspecified; J45.909 Unspecified asthma, uncomplicated; Z95.1 Presence of aortocoronary bypass graft
CPT/HCPCS: 36415; 71045; 80048; 83880; 84484; 85025; 93005; 99285

== ENCOUNTER 2023-09-20 18:00 | Emergency (ER) | payer BC, MEDICAID ==
[~2023-09-20] VITALS: Ht 167.6 cm; Wt 89.1 kg
[~2023-09-20 18:00] MED LIST changes: -MONT-40 PO
[2023-09-20 18:35] VITALS: BP 160/42; PULSE 41; RESP 18; TEMP 97.4; O2SAT 96
[2023-09-20 18:51] LABS: ALANINE AMINOTRANSFERASE 21 U/L (12-78); ALBUMIN 3.7 G/DL (3.4-5.0); ALKALINE PHOSPHATASE 64 IU/L (46-116); ANION GAP 11 (8-16); ASPARTATE AMINO TRANSFERASE 24 U/L (10-37); BILIRUBIN,TOTAL 0.8 MG/DL (0.1-1.0); BLOOD UREA NITROGEN 40 MG/DL (7-18); BUN/CREATININE RATIO 17.7 (10.0-20.0); CALCIUM 8.8 MG/DL (8.5-10.1); CHLORIDE 100 MMOL/L (99-107); CREATININE 2.26 MG/DL (0.60-1.10); GLUCOSE 164 MG/DL (70-104); POTASSIUM 4.7 MMOL/L (3.5-5.1); PRO BRAIN NATRIURETIC PEPTIDE 916 PG/ML (0-450); SODIUM 133 MMOL/L (135-145); TOTAL CARBON DIOXIDE 22.1 MMOL/L (24-32); TOTAL PROTEIN 7.5 G/DL (6.4-8.2); eCRCL 22 ML/MIN; eGFR 28 ML/MIN
[2023-09-20 22:54] LABS: BASOPHILS % (AUTO) 0.5 % (0-1); EOSINOPHILS # (AUTO) 0.1 X10'3 (0-0.9); EOSINOPHILS % (AUTO) 1.8 % (0-6); HEMATOCRIT 48.3 % (42.0-52.0); HEMOGLOBIN 16.2 g/dl (14.0-17.9); LYMPHOCYTES # (AUTO) 1.5 X10'3 (1.1-4.8); LYMPHOCYTES % (AUTO) 27.5 % (21-51); MEAN CORPUSCULAR HEMOGLOBIN 30.8 PG (27.0-31.0); MEAN CORPUSCULAR HGB CONC 33.5 g/dL (33.0-36.5); MEAN CORPUSCULAR VOLUME 91.8 FL (78-98); MEAN PLATELET VOLUME 9.1 FL (7.4-10.4); MONOCYTES # (AUTO) 0.5 X10'3 (0-0.9); MONOCYTES % (AUTO) 8.2 % (2-12); NEUTROPHILS # (AUTO) 3.5 X10'3 (1.8-7.7); PLATELET COUNT 173 X10'3 (140-440); RED BLOOD COUNT 5.26 X10'6 (4.70-6.10); WHITE BLOOD COUNT 5.6 X10'3 (4.5-11.0)
== END 2023-09-21 02:01 | disposition left against medical advice (07) ==
LOC: ER 18:01
DX: I10 Essential (primary) hypertension (principal); Z53.21 Procedure and treatment not carried out due to patient leaving prior to being seen by health care provider
CPT/HCPCS: 36415; 71045; 80053; 83880; 84484; 85025; 93005